=== PATIENT | male | born 1955 | race Caucasian/White ===

== ENCOUNTER 2017-02-18 08:15 | Inpatient (IN) | payer OTHER ==
--- NOTE | 2017-02-08 10:11 | HP ---
HISTORY AND PHYSICAL: DATE OF SURGERY: 02/18/17 DATE OF OFFICE VISIT: 02/05/17 SURGEON: Michelle Huang MD * (DICTATED BY TITA BARNETT) PROCEDURE: Left total hip arthroplasty. CHIEF COMPLAINT: Left hip pain. HISTORY OF PRESENT ILLNESS: Mr. Perry is a 61-year-old gentleman with complaints of left hip pain secondary to advanced osteoarthritis. He has failed conservative management and has elected to proceed with a left total hip arthroplasty, which is scheduled for 02/18/[address] Huang. PAST MEDICAL HISTORY: High cholesterol and AFib. PAST SURGICAL HISTORY: Right knee arthroscopy x2, left knee arthroscopy x1, left carpal tunnel release. CURRENT MEDICATIONS: Lipitor 40 mg q.h.s. ALLERGIES: HYDROCODONE, which causes vomiting. FAMILY HISTORY: Denies. SOCIAL HISTORY: This is a 61-year-old gentleman. He lives with his . He does not smoke cigarettes, but does report smoking marijuana and occasional alcohol. REVIEW OF SYSTEMS: A complete 14-point review of systems was reviewed with the patient, was all negative or noncontributory. PHYSICAL EXAMINATION GENERAL: He is well developed, well nourished, in no acute distress. VITAL SIGNS: He stands 5 feet 8 inches tall, weighs 150 pounds. His blood pressure is 122/68. His heart rate was 68. HEENT: Normocephalic, atraumatic. NECK: Supple. No palpable lymph nodes. PULMONARY: The lungs are clear to auscultation bilaterally. CARDIO: Regular rate and rhythm. Strong S1, S2. ABDOMEN: Soft, nontender, nondistended. MUSCULOSKELETAL: Left lower extremity, the skin is intact. There are no open wounds or abrasions. He has decreased internal and external rotation of the left hip. He walks with an antalgic type gait. He is overall neurovascularly intact. ASSESSMENT/PLAN: Mr. Perry is a 61-year-old gentleman with complaints of left hip pain secondary to advanced osteoarthritis. He has failed conservative management and has elected to proceed with a left total hip arthroplasty which is scheduled on 02/18/[address] Huang discussed the risks and benefits of the surgery at today's visit and all of his questions were answered. Coumadin, Percocet, and Colace were sent to his pharmacy for postoperative pain control and DVT prophylaxis. He will see Dr. Huang back 2 weeks after the surgery. TITA BARNETT [id number]/[facility] #: [id number] MTDD
[~2017-02-18 08:15] MED LIST: Buffered Lidocaine 0.9% SYRIN* 5 ML/SYR SYRINGE INTRADERM ONE; Sodium Citrate/Citric Acid* 15 ML UDC PO ONE
[2017-02-18] MEDS ORDERED: Sodium Citrate/Citric Acid* 15 ML UDC ONE (08:24)
[2017-02-18] MEDS ORDERED: ceFAZolin 2 GM PREMIX (*) 50 ML IVPB ONE ×2 (08:24→09:12)
[2017-02-18] MEDS ORDERED: Buffered Lidocaine 0.9% SYRIN* 5 ML/SYR SYRINGE ONE (08:24)
[2017-02-18 09:24] LABS: Direct Bilirubin 0.2 mg/dL (0.03-0.18); Indirect Bilirubin 0.8 mg/dL (0.3-1.0)
[2017-02-18] MEDS ORDERED: Midazolam* 1 MG/ML 2 ML VIAL (2 MG) ONE (11:48)
[2017-02-18] MEDS ORDERED: Cisatracurium* 2 MG/ML MDV 5 ML ONE (11:48)
[2017-02-18] MEDS ORDERED: Propofol* 10 MG/ML 20 ML BTL IV PUSH ONE (11:48)
[2017-02-18] MEDS ORDERED: Lidocaine 2% PF * 5 ML VIAL ONE (11:48)
[2017-02-18] MEDS ORDERED: fentaNYL* 50 MCG/ML 2 ML VIAL (100 MCG VIAL) ONE ×2 (11:48→14:57)
[2017-02-18] MEDS ORDERED: KETAMINE HCL* 50 MG/ML 10 ML VIAL ONE (12:15)
[2017-02-18] MEDS ORDERED: Ondansetron INJ* 2 MG/ML VIAL ONE (14:02)
[2017-02-18] MEDS ORDERED: Neostigmine Methylsulfate* 2 MG/2 ML SYRINGE ONE (14:02)
[2017-02-18] MEDS ORDERED: Glycopyrrolate IV* 0.2 MG/ML 1 ML VIAL ONE ×2 (14:02→14:36)
[2017-02-18] MEDS ORDERED: Ketorolac INJ* 30 MG/ML 1 ML VIAL ONE (14:02)
[2017-02-18] MEDS ORDERED: DiMENhydriNATE IV* 50 MG/ML VIAL IV PUSH PRN (14:30)
[2017-02-18] MEDS ORDERED: Polyethylene Glycol 3350* 17 GM PACKET PO PRN (14:50)
[2017-02-18] MEDS ORDERED: diPHENhydraMINE IV* 50 MG/ML 1 ml VIAL (BENADRYL) IV PRN (14:50)
[2017-02-18] MEDS ORDERED: Acetaminophen TAB* 325 MG PO PRN (14:50)
[2017-02-18] MEDS ORDERED: Magnesium Hydroxide LIQ* 30 ML UDC PO PRN (14:50)
[2017-02-18] MEDS ORDERED: Ondansetron TAB* 4 MG PO PRN (14:50)
[2017-02-18] MEDS ORDERED: oxyCODONE TAB* 5 MG TAB PO PRN (14:50)
[2017-02-18] MEDS ORDERED: Morphine INJ* 2 MG/ML 1 ML SYRINGE (TWO MG - NEW SYRINGE VERSION) IV PRN (14:50)
[2017-02-18] MEDS ORDERED: Bisacodyl SUPP* 10 MG SUPP PR PRN (14:50)
[2017-02-18] MEDS: fentaNYL* 50 MCG/ML 2 ML VIAL (100 MCG VIAL) IV PRN ×2 (14:59→15:33)
[2017-02-18] MEDS ORDERED: DiMENhydriNATE IV* 50 MG/ML VIAL ONE (15:57)
[2017-02-18] MEDS: oxyCODONE/Acetamin 5/325 MG* TAB PO PRN ×3 (17:42→23:53)
[2017-02-18] MEDS ORDERED: Warfarin TAB(*) 6 MG PO ONE (18:00)
[2017-02-18] MEDS: Atorvastatin* 40 MG TAB PO SCH (18:05)
[2017-02-18] MEDS: Docusate CAP* 100 MG PO SCH (20:51)
[2017-02-18] MEDS: ceFAZolin 1 GM VIAL(*) 1 GM in NS 0.9% 50 ML* 50 ML IVPB SCH (20:53)
[2017-02-19] MEDS: oxyCODONE/Acetamin 5/325 MG* TAB PO PRN ×5 (04:27→21:40)
[2017-02-19] MEDS: ceFAZolin 1 GM VIAL(*) 1 GM in NS 0.9% 50 ML* 50 ML IVPB SCH ×2 (04:27→12:35)
[2017-02-19 06:51] LABS: Hematocrit 29 % (42-52); Hemoglobin 9.9 g/dl (14.0-18.0)
[2017-02-19 06:53] LABS: Comments Flag Yes
[2017-02-19 07:04] LABS: BUN/Creatinine Ratio 16.5 (8-20); Calcium 7.9 mg/dL (8.6-10.3); EGFR African American 127.4 (>60); EGFR Non-African American 99.1 (>60); Potassium 4.2 mmol/L (3.5-5.0)
[2017-02-19] MEDS: Docusate CAP* 100 MG PO SCH ×2 (07:57→21:38)
--- NOTE | 2017-02-19 10:10 | PN ---
Progress Note - Progress Note Date of Service: 02/19/17 SOAP: Subjective: []Patient seen OOB in chair. He is doing very well with minimal pain. Denies SOB, CP or dizziness. Objective: [] Vital Signs Temp 98.1 F 02/19/17 07:14 Pulse 70 02/19/17 07:14 Resp 16 02/19/17 07:56 BP 116/54 02/19/17 07:14 Pulse Ox 97 02/19/17 07:14 Intake & Output 02/18/17 02/19/17 02/19/17 18:59 06:59 18:59 Intake Total 3600 2789 Output Total 100 625 Balance 3500 2164 Weight 156 lb Intake: IV Fluids 3600 989 LR 3600 989 IVPB 50 ABX - CEFAZOLIN 50 Oral 1750 Output: Urine 0 Broderick 100 625 Laboratory Results - last 24 hr 02/19/17 02/19/17 02/19/17 06:30 06:30 06:30 Hgb 9.9 L Hct 29 L INR (Anticoag Therapy) 1.03 Sodium 133 Potassium 4.2 Chloride 101 Carbon Dioxide 28 Anion Gap 4 BUN 13 Creatinine 0.79 Est GFR ( Amer) 127.4 Est GFR (Non-Af Amer) 99.1 BUN/Creatinine Ratio 16.5 Glucose 120 H Calcium 7.9 L Left hip dressings dry and intact calf NT +DF/PF left ankle sensation and circulation intact Assessment: []s/p Left total hip arthroplasty POD #1 Plan: []PT/OT WBAT LLE Coumadin w Lovenox bridge- 8mg today Home w VNS when all goals met
[2017-02-19] MEDS: Enoxaparin(*) 30 MG/0.3 ML SYR SUBCUT SCH (12:35)
--- NOTE | 2017-02-19 12:37 | OP ---
OPERATIVE REPORT: DATE OF OPERATION: 02/18/17 DATE OF : 51 SURGEON: Michelle Huang MD REAL ESTATE ANALYST: TITA Faulkner Ms. did help throughout the procedure with preparation of the leg, wound retraction, manipulation of the hip, and wound closure. ANESTHESIOLOGIST: Ronny Weiss DO ANESTHESIA: General. PRE-OP DIAGNOSIS: Severe end-stage degenerative osteoarthritis of the left hip joint. POST-OP DIAGNOSIS: Severe end-stage degenerative osteoarthritis of the left hip joint. OPERATIVE PROCEDURE: Left total hip arthroplasty. INDICATIONS: Mr. Perry is a 61-year-old gentleman with years of increasingly severe left hip pain. He failed conservative treatment with antiinflammatories , pain medications, intraarticular injections, and physical therapy. Due to continued pain, and decreased quality of life, he elected to undergo a left total hip arthroplasty. Informed consent was obtained from the patient. He understood the risks of the procedure included but were not limited to bleeding , infection, damage to nearby structures, continued pain, need for further surgery, intraoperative fracture, nerve palsy, hardware failure, dislocation, leg length discrepancy, stroke, heart attack, blood clot, and . He wished to proceed. EBL: 500 cc. COMPLICATIONS: None. SPECIMEN: Femoral head and acetabular reaming sent to Pathology. HARDWARE USED: This is uncemented [place] total hip hardware. For the cup, a 54E Tritanium cluster hole shell. A 25-mm cancellous bone screw was used. For the polyethylene liner, a Trident X3 0-degree polyethylene insert 36E. For the femoral stem, a size 3.5 Accolade TMZF with a 127-degree neck. For the head, a Biolox delta ceramic V40 femoral head, 36 -5. INTRAOPERATIVE FINDINGS: The patient's femoral head and acetabulum had complete loss of cartilage. He had extensive osteophyte formation around the acetabulum. DESCRIPTION OF PROCEDURE: Mr. Perry was identified in the preanesthesia unit. His left lower extremity was marked as the correct operative side. Informed consent was signed and placed in the chart. The patient was taken to the operating room and placed under general anesthesia. A Broderick catheter was placed. The patient was placed in the right lateral decubitus position on the peg board and all bony prominences were well padded. Left lower extremity was prepped and draped in the usual sterile fashion. Preop time-out was made to correctly identify the patient's side and site. Appropriate perioperative antibiotics were given within 1 hour of incision. A 14-cm posterior hip incision was made with a 10-blade and carried down to the lateral fascial layer. Lateral fascial layer was incised in line with the skin incision. Charnley retractor was placed and the posterior aspect of the hip joint was visualized. Piriformis and conjoint tendons were identified and elevated off the posterolateral femur using electrocautery. These were tagged with #5 Ethibond's. Electrocautery was then used to make a standard posterolateral capsular flap. This was also tagged with #5 Ethibond's. The hip was carefully dislocated. Lesser troch to center of the femoral head measured 55 mm. Oscillating saw was used to make the appropriate femoral neck cut. Femoral head was sent to Pathology. The femur was carefully retracted anteriorly. A long-handled knife was used to carefully remove any remaining labrum from the acetabular rim. The acetabulum was sequentially reamed up to a size 53. Bleeding subchondral bone bed was obtained. A 53 trial had excellent fit. Final implant chosen for the acetabulum was a 54E Tritanium cluster hole shell. This was impacted into the acetabulum without difficulty. The cup was stable with appropriate anteversion and abduction angle. One 25-mm cancellous bone screw was placed in the superoposterior quadrant for extra stability. A Trident X3 0-degree polyethylene insert 36E was chosen as the liner. This was impacted into the acetabulum without difficulty. Stability of the liner was checked and rechecked and noted to be stable. Attention was next turned to preparation of the femur. Canal finder was used to enter the proximal femur. Proximal femur was sequentially broached up to a size 3.5. A 3.5 broach had excellent fit and appropriate anteversion. A 127- degree neck trial was chosen as well as a 36 +0 head trial. Lesser troch to center of the femoral head measured 60 mm; therefore, a 36 -5 trial was chosen and this measured 56 mm. The hip was reduced and taken through a range of motion. The hip was stable in all positions with good soft tissue tension and appropriate leg lengths. The hip was carefully dislocated. All trials were carefully removed. Final femoral stem chosen was an Accolade TMZF size 3.5 with a 127-degree neck. This was impacted into the femur without difficulty. The femoral stem was quite stable with appropriate anteversion. Biolox delta ceramic V40 femoral head 36 - 5 was chosen. This was impacted on to the femoral neck. Lesser troch to center of the femoral head measured 56 mm. The hip was reduced and taken through a range of motion. The hip was stable in all positions. The hip was copiously irrigated with sterile saline. Previously tagged tendons and capsule were reapproximated to the posterolateral femur using 2 trochanteric drill holes. Fascial layer was closed using interrupted #1 Vicryl' s. The rest of the incision was closed in a layered fashion using 0 and 2-0 Vicryl's. Skin was closed using running 3-0 Monocryl with Dermabond. Sterile Adaptic, 4x4's, and paper tape were used to cover the incision. The patient's anesthesia was reversed without difficulty. He was taken to the PACU in stable condition. Intended weightbearing is weightbearing as tolerated. Intended DVT prophylaxis is Coumadin with a Lovenox bridge. [id number]/[facility] #: [id number] [facility]
[2017-02-19] MEDS: Atorvastatin* 40 MG TAB PO SCH (16:57)
[2017-02-19] MEDS ORDERED: Warfarin TAB(*) 4 MG PO ONE (17:00)
[2017-02-19] MEDS ORDERED: PROCHLORPERAZINE INJ 5 MG/ML 2 ML VIAL IV PRN (17:35)
[2017-02-19] MEDS ORDERED: PROCHLORPERAZINE INJ 5 MG/ML 2 ML VIAL ONE (17:40)
[2017-02-20] MEDS: oxyCODONE/Acetamin 5/325 MG* TAB PO PRN ×3 (04:05→10:34)
[2017-02-20 06:43] LABS: Hematocrit 27 % (42-52); Hemoglobin 9.5 g/dl (14.0-18.0)
--- NOTE | 2017-02-20 07:28 | PN ---
Progress Note - Progress Note Date of Service: 02/20/17 SOAP: Subjective: Pt. is alert, reports n/v is improved. Objective: LLE - dressing changed, inc c/d/i. min swelling. distally nvi. Vital Signs: Temp Pulse Resp BP Pulse Ox 98.8 F 82 16 104/49 95 02/20/17 04:13 02/20/17 04:12 02/20/17 06:05 02/20/17 04:12 02/20/17 04:12 Laboratory Results - last 24 hr 02/20/17 02/20/17 06:13 06:13 Hgb 9.5 L Hct 27 L INR (Anticoag Therapy) 1.24 H Assessment: 61 yo M pod 2 s/p LTHA Plan: wbat lle pt/ot lovenox today home with vns today
[2017-02-20 07:37] VITALS: BP 100/54
[2017-02-20] MEDS: Docusate CAP* 100 MG PO SCH (10:28)
[2017-02-20] MEDS: Enoxaparin(*) 30 MG/0.3 ML SYR SUBCUT SCH (11:56)
--- NOTE | 2017-02-21 04:46 | DS ---
AMENDED REPORT NOW INCLUDES COSIGNER DESIGNATION - ESIGNED BEFORE ADJUSTMENT DISCHARGE SUMMARY: DATE OF ADMISSION: 02/18/17 DATE OF DISCHARGE: 02/20/17 ATTENDING PHYSICIAN: Michelle Huang MD * (DICTATED BY TITA SOTO) PRINCIPAL DIAGNOSIS: Left hip osteoarthritis. SECONDARY DIAGNOSES: 1. Hyperlipidemia. 2. Atrial fibrillation. PRINCIPAL PROCEDURE: Left total hip arthroplasty. REASON FOR HOSPITALIZATION: Mr. Perry is a 61-year-old male with complaints of left hip pain secondary to advanced osteoarthritis. He had failed conservative management and had elected to proceed with left total hip arthroplasty, which was scheduled on 02/18/[address] Huang. HOSPITAL COURSE: The patient was admitted to the hospital and underwent a left total hip arthroplasty on 02/18/[address] Huang, without complication. The patient was transferred postoperatively to the recovery room and subsequently the surgical stay unit in a stable condition. His vital signs have remained stable throughout the hospital course, including remaining afebrile. His dressing was changed on the day of discharge. His incision was clean, dry, and intact. He is using Percocet for pain control. He has been on Coumadin for DVT prophylaxis. INR was drawn throughout the hospital course. He has participated in physical therapy and occupational therapy throughout the hospital course and has done well. His hemoglobin and hematocrit have been checked throughout the hospital course and on the day of discharge hemoglobin was 9.5, hematocrit was 27 and stable, and he will be discharged home on in a stable condition. DISCHARGE INSTRUCTIONS: Weightbearing as tolerated. Wound care: Okay to shower, no bathing, swimming, submerging wound. Use gentle soap, pat dry, cover with gauze, Ravindra wrap or tape. Call orthopedic office for increased drainage, redness, increased pain or fever. Go to the ER with shortness of breath or chest pain. Diet, regular diet, increase fluids and fiber to prevent constipation. Continue to use stool softeners, call office if no bowel movements within 48 hours. Continue hip precautions, do not cross legs or bend greater than 90 degrees or squat. Continue physical therapy and occupational therapy, exercises as shown. Visiting home nurse to do wound checks. Visiting home nurse to draw blood work for INR on Mondays and . Coumadin dosing , take Coumadin 6 mg today and 6 mg tomorrow, on 02/21/17. Home nurse to redraw INR on Wednesday. Antibiotics required prior to any dental work. Follow up with Dr. Huang within 10 to 14 days, call for appointment. TITA SOTO [id number]/[facility] #: [id number] TAL
--- NOTE | 2017-02-22 09:54 | RAD ---
Edited for charges. Indication: Postop LEFT total hip replacement. Comparison: December 16, 2016 Technique: Low AP pelvis and proximal femurs, AP and crosstable lateral LEFT hip Report: LEFT total hip prosthesis in place with normal alignment. No periprosthetic fracture evident. Overlying soft tissue edema and subcutaneous emphysema. IMPRESSION: Unremarkable immediate postop appearance following LEFT total hip replacement. TAL
== END 2017-02-20 12:20 | disposition home health service (06) | DRG 470 ==
LOC: AA 08:15 → SSU 17:01
PROVIDERS: ADMIT Orthopaedic Surgery Adult Reconstructive Orthopaedic Surgery; ATTEND Orthopaedic Surgery Adult Reconstructive Orthopaedic Surgery
PROC: 0SRB04A Replacement of Left Hip Joint with Ceramic on Polyethylene Synthetic Substitute, Uncemented, Open Approach (ICD-10-PCS; principal; 2017-02-18 12:00)
DX: M16.12 Unilateral primary osteoarthritis, left hip (principal); I48.91 Unspecified atrial fibrillation; E78.5 Hyperlipidemia, unspecified; F12.90 Cannabis use, unspecified, uncomplicated; M25.752 Osteophyte, left hip; Z88.5 Allergy status to narcotic agent; Z72.89 Other problems related to lifestyle
CPT/HCPCS: 36415; 72170; 80048; 82247; 82248; 85014; 85018; 85610; 85730; A9270-GY; C1713; C1776; J0690; J0780; J1240; J1650; J1885; J2250; J2405; J2704; J3010

== ENCOUNTER 2017-03-01 13:39 | Observation (INO) | payer OTHER ==
[2017-03-01] MEDS ORDERED: NS 0.9% 1000 ML* 1,000 ML IV ONE (14:37)
[2017-03-01 14:47] LABS: Hematocrit 32 % (42-52); Hemoglobin 10.7 g/dl (14.0-18.0); Mean Corpuscular HGB Conc 34 g/dl (31-36); Mean Corpuscular Hemoglobin 31 pg (27-31); Mean Corpuscular Volume 91 fL (80-94); Mean Platelet Volume 7 um3 (7.4-10.4); Red Blood Count 3.48 10^6/ul (4.0-5.4); Red Cell Distribution Width 13 % (10.5-15); White Blood Count 13.9 10^3/ul (3.5-10.8)
[2017-03-01 15:04] LABS: Albumin 3.8 g/dL (3.2-5.2); BUN/Creatinine Ratio 18.1 (8-20); C Reactive Protein 10.92 mg/L (< 5.00); EGFR African American 120.3 (>60); EGFR Non-African American 93.6 (>60); Globulin 3.1 g/dL (2-4); Magnesium 2.3 mg/dL (1.9-2.7); Potassium 3.8 mmol/L (3.5-5.0); Total Bilirubin 0.5 mg/dL (0.2-1.0); Total Protein 6.9 g/dL (6.4-8.9)
[2017-03-01] MEDS ORDERED: Iohexol 350* (CONTRAST) 500 ML MDV IV ONE (15:08)
[2017-03-01 15:14] LABS: Troponin I 0.09 ng/mL (<0.04)
[2017-03-01 15:40] LABS: TSH (Thyroid Stimulating Horm) 0.49 mcIU/mL (0.34-5.60)
--- NOTE | 2017-03-01 15:45 | RAD ---
INDICATION: Pain and swelling. Chest pain. Recent hip surgery. COMPARISON: None TECHNIQUE: Duplex interrogation of the left lower extremity was performed. FINDINGS: Deep veins: The common femoral, great saphenous, profunda femoris, proximal, mid, and distal deep femoral, popliteal, posterior tibial, and peroneal veins are patent. There is normal compressibility, augmentation, and phasic flow. Superficial veins: There are no findings of superficial thrombophlebitis. Popliteal fossa:There is no evidence of a popliteal cyst. Soft tissues:There are no soft tissue abnormalities. IMPRESSION: Normal examination. No evidence of deep venous thrombosis
[2017-03-01] MEDS ORDERED: Iodixanol* (CONTRAST) 320 MG/ML 100 ML SDV IV ONE (15:55)
[2017-03-01] MEDS ORDERED: Aspirin Low Dose CHEW TAB* 81 MG PO ONE (16:08)
--- NOTE | 2017-03-01 16:40 | RAD ---
INDICATION: Chest pain. Short of breath. Evaluate for pulmonary embolus. COMPARISON: Chest x-ray February 05, 2017 TECHNIQUE: Axial source images were obtained from the thoracic inlet to the hemidiaphragms following administration of [address] angiographic technique was utilized. Coronal and sagittal reconstructed images were acquired. CHEST FINDINGS: Neck/thyroid: The visualized neck to include the thyroid appear normal. Chest wall: There are no acute abnormalities of the bony thorax or chest wall. There is no supraclavicular, infraclavicular, or axillary lymphadenopathy. Lungs : There are no pulmonary parenchymal masses or infiltrates. The pulmonary interstitium appears normal. There are no endobronchial lesions. Cardiomediastinal structures: There is no CT evidence of acute pulmonary embolic disease. The heart is normal in size. There is no pericardial effusion. There is no evidence of aortic aneurysm or dissection. There is no mediastinal or hilar adenopathy. The esophagus appears normal. Pleura : There are no pleural-based masses or effusions. Other: None. IMPRESSION: NO CT EVIDENCE OF ACUTE PULMONARY EMBOLIC DISEASE
[2017-03-01] MEDS ORDERED: oxyCODONE/Acetamin 5/325 MG* TAB PO PRN (18:21)
[2017-03-01] MEDS ORDERED: Acetaminophen TAB* 325 MG PO PRN (18:21)
[2017-03-01] MEDS ORDERED: Morphine INJ* 2 MG/ML 1 ML SYRINGE (TWO MG - NEW SYRINGE VERSION) IV PRN (18:21)
--- NOTE | 2017-03-01 18:34 | ED ---
Viet Garibay Benjamin, scribed for Terry Gaines MD on 03/01/17 at 1433 . HPI Chest Pain - HPI Summary HPI Summary: 61yo male c/o bilateral chest pain that radiates to right shoulder and right arm , and neck. CP occurs intermittently, lasting about 10 minutes. Pt had an episode last night around 9pm and today at 12:30pm. Pt is s/p 2 weeks for hip replacement. Pt has been on post-op Coumadin. Denies nausea, SOB, but states slightly diaphoretic earlier today. Hx of HLD, but not DM, and no siginificant cardiac Hx. - History of Current Complaint Chief Complaint: EDChestPainROMI Hx Obtained From: Patient, Family/[employer] System Administrator Onset/Duration: Started Days Ago - 1 day ago, Atraumatic, Resolved Timing: Intermittent, Lasting Minutes - 10 minutes Initial Severity: Moderate Current Severity: None Pain Intensity: 1 Pain Scale Used: 0-10 Numeric Chest Pain Location: Diffuse Chest Pain Radiates: Yes Chest Pain Radiates To:: Shoulder - right, Arm - right, Neck Aggravating Factor(s): Nothing Alleviating Factor(s): Nothing Associated Signs and Symptoms: Positive: Chest Pain, Diaphoresis. Negative: Shortness of Breath, Fever, Nausea - Allergy/Home Medications Allergies/Adverse Reactions: Allergies Allergy/AdvReac Type Severity Reaction Status Date / Time Hydrocodone Allergy Vomiting Verified 02/18/17 08:45 PMH/Surg Hx/FS Hx/Imm Hx Endocrine/Hematology History: Denies: Hx Diabetes Cardiovascular History: Reports: Hx Hypercholesterolemia, Other Cardiovascular Problems/Disorders - high cholesterol Denies: Hx Myocardial Infarction Sensory History: Reports: Hx Contacts or Glasses Denies: Hx Hearing Aid Opthamlomology History: Reports: Hx Contacts or Glasses - Cancer History Hx Chemotherapy: No - Surgical History Surgery Procedure, Year, and Place: carpel tunnel left wrist, 2x right knee arthroscopic, 1 left arthroscopic. Hx Anesthesia Reactions: No Infectious Disease History: No Infectious Disease History: Denies: Traveled Outside the [place] in Last 30 Days - Family History Known Family History: Positive: Hypertension, Other - HLD - Social History Lives: With Family Alcohol Use: Daily Alcohol Amount: 3-4 day Substance Use Type: Reports: Marijuana Substance Use Comment - Amount & Last Used: 1-2 weeks ago Smoking Status (MU): Never Smoked Tobacco Review of Systems Positive: Skin Diaphoresis. Negative: Fever Eyes: Negative ENT: Negative Positive: Epistaxis Positive: Chest Pain Respiratory: Negative Gastrointestinal: Negative Negative: Nausea Genitourinary: Negative Positive: no symptoms reported Musculoskeletal: Negative Skin: Negative Neurological: Negative Psychological: Normal All Other Systems Reviewed And Are Negative: Yes Physical Exam Triage Information Reviewed: Yes Vital Signs On Initial Exam: Initial Vitals Temp Pulse Resp BP Pulse Ox 99.7 F 78 17 147/84 100 03/01/17 13:41 03/01/17 13:41 03/01/17 13:41 03/01/17 13:41 03/01/17 13:41 Vital Signs Reviewed: Yes Appearance: Positive: Well-Appearing, No Pain Distress, Well-Nourished Skin: Positive: Warm, Skin Color Reflects Adequate Perfusion, Dry Head/Face: Positive: Normal Head/Face Inspection Eyes: Positive: Normal ENT: Positive: Normal ENT inspection, Hearing grossly normal Neck: Positive: Supple, Nontender Respiratory/Lung Sounds: Positive: Clear to Auscultation, Breath Sounds Present Cardiovascular: Positive: RRR, Pulses are Symmetrical in both Upper and Lower Extremities Abdomen Description: Positive: Nontender, Soft Bowel Sounds: Positive: Present Musculoskeletal: Positive: Normal, Strength/ROM Intact Neurological: Positive: Sensory/Motor Intact, Alert, Oriented to Person Place, Time Psychiatric: Positive: Affect/Mood Appropriate Diagnostics - Vital Signs Vital Signs Temp Pulse Resp BP Pulse Ox 03/01/17 13:41 99.7 F 78 17 147/84 100 - Laboratory Lab Results: Lab Results 03/01/17 03/01/17 03/01/17 Range/Units 14:35 14:35 14:35 WBC (3.5-10.8) 10^3/ul RBC (4.0-5.4) 10^6/ul Hgb (14.0-18.0) g/dl Hct (42-52) % MCV (80-94) fL MCH (27-31) pg MCHC (31-36) g/dl RDW (10.5-15) % Plt Count (150-450) 10^3/ul MPV (7.4-10.4) um3 Neut % (Auto) (38-83) % Lymph % (Auto) (25-47) % [place] % (Auto) (1-9) % Eos % (Auto) (0-6) % Baso % (Auto) (0-2) % Absolute Neuts (auto) (1.5-7.7) 10^3/ul Absolute Lymphs (auto) (1.0-4.8) 10^3/ul Absolute Monos (auto) (0-0.8) 10^3/ul Absolute Eos (auto) (0-0.6) 10^3/ul Absolute Basos (auto) (0-0.2) 10^3/ul Absolute Nucleated RBC 10^3/ul Nucleated RBC % INR (Anticoag Therapy) 1.59 H (0.89-1.11) APTT 35.2 (26.0-36.3) seconds Sodium 138 (133-145) mmol/L Potassium 3.8 (3.5-5.0) mmol/L Chloride 104 (101-111) mmol/L Carbon Dioxide 29 (22-32) mmol/L Anion Gap 5 (2-11) mmol/L BUN 15 (6-24) mg/dL Creatinine 0.83 (0.67-1.17) mg/dL Est GFR ( Amer) 120.3 (>60) Est GFR (Non-Af Amer) 93.6 (>60) BUN/Creatinine Ratio 18.1 (8-20) Glucose 105 H (70-100) mg/dL Lactic Acid (0.5-2.0) mmol/L Calcium 9.0 (8.6-10.3) mg/dL Magnesium 2.3 (1.9-2.7) mg/dL Total Bilirubin 0.50 (0.2-1.0) mg/dL AST 28 (13-39) U/L ALT 47 (7-52) U/L Alkaline Phosphatase 49 (34-104) U/L Total Creatine Kinase 53 (10-223) U/L CK-MB (CK-2) 1.9 (0.6-6.3) ng/mL Troponin I 0.09 H* (<0.04) ng/mL C-Reactive Protein 10.92 H (< 5.00) mg/L B-Natriuretic Peptide 43 ( - 100) pg/mL Total Protein 6.9 (6.4-8.9) g/dL Albumin 3.8 (3.2-5.2) g/dL Globulin 3.1 (2-4) g/dL Albumin/Globulin Ratio 1.2 (1-3) Lipase 41 (11.0-82.0) U/L TSH 0.49 (0.34-5.60) mcIU/mL 03/01/17 03/01/17 Range/Units 14:35 14:35 WBC 13.9 H (3.5-10.8) 10^3/ul RBC 3.48 L (4.0-5.4) 10^6/ul Hgb 10.7 L (14.0-18.0) g/dl Hct 32 L (42-52) % MCV 91 (80-94) fL MCH 31 (27-31) pg MCHC 34 (31-36) g/dl RDW 13 (10.5-15) % Plt Count 418 (150-450) 10^3/ul MPV 7 L (7.4-10.4) um3 Neut % (Auto) 78.5 (38-83) % Lymph % (Auto) 10.1 L (25-47) % [place] % (Auto) 10.3 H (1-9) % Eos % (Auto) 0.7 (0-6) % Baso % (Auto) 0.4 (0-2) % Absolute Neuts (auto) 10.9 H (1.5-7.7) 10^3/ul Absolute Lymphs (auto) 1.4 (1.0-4.8) 10^3/ul Absolute Monos (auto) 1.4 H (0-0.8) 10^3/ul Absolute Eos (auto) 0.1 (0-0.6) 10^3/ul Absolute Basos (auto) 0.1 (0-0.2) 10^3/ul Absolute Nucleated RBC 0.01 10^3/ul Nucleated RBC % 0.1 INR (Anticoag Therapy) (0.89-1.11) APTT (26.0-36.3) seconds Sodium (133-145) mmol/L Potassium (3.5-5.0) mmol/L Chloride (101-111) mmol/L Carbon Dioxide (22-32) mmol/L Anion Gap (2-11) mmol/L BUN (6-24) mg/dL Creatinine (0.67-1.17) mg/dL Est GFR ( Amer) (>60) Est GFR (Non-Af Amer) (>60) BUN/Creatinine Ratio (8-20) Glucose (70-100) mg/dL Lactic Acid 1.1 (0.5-2.0) mmol/L Calcium (8.6-10.3) mg/dL Magnesium (1.9-2.7) mg/dL Total Bilirubin (0.2-1.0) mg/dL AST (13-39) U/L ALT (7-52) U/L Alkaline Phosphatase (34-104) U/L Total Creatine Kinase (10-223) U/L CK-MB (CK-2) (0.6-6.3) ng/mL Troponin I (<0.04) ng/mL C-Reactive Protein (< 5.00) mg/L B-Natriuretic Peptide ( - 100) pg/mL Total Protein (6.4-8.9) g/dL Albumin (3.2-5.2) g/dL Globulin (2-4) g/dL Albumin/Globulin Ratio (1-3) Lipase (11.0-82.0) U/L TSH (0.34-5.60) mcIU/mL Result Diagrams: 03/01/17 14:35 03/01/17 14:35 Lab Statement: Any lab studies that have been ordered have been reviewed, and results considered in the medical decision making process. - CT CTA CHEST CT Interpretation: No Acute Changes - IMPRESSION: NO CT EVIDENCE OF ACUTE PULMONARY EMBOLIC DISEASE CT Interpretation Completed By: Radiologist - ED physician has reviewed this radiology report and agrees. - EKG 1404. Cardiac Rate: NL - 67bpm EKG Rhythm: Sinus Rhythm Ectopy: None EKG Interpretation: T wave depression in V4 and V5 - Additional Comments Diagnostic Additional Comments: Doppler Study: NO DVT. ED physician has reviewed this radiology report and agrees. Chest Pain Course/Dx - Course Course Of Treatment: Reviewed pts medication and allergy lists. High Blood pressure noted. DISCUSSED WITH DR CHACKO. DISCUSSED RESULTS WITH PATIENT/WFE. ADMIT HOSPITALIST. - Diagnoses Provider Diagnoses: Chest pain, Elevated troponin Discharge - Discharge Plan Condition: Stable Disposition: ADMITTED TO [facility] documentation as recorded by the Viet henderson Benjamin accurately reflects the service I personally performed and the decisions made by me, Terry Gaines MD.
[2017-03-01] MEDS ORDERED: Heparin DRIP 25,000 UNITS(*) 25,000 UNITS/500 ML BAG IVPB SCH (19:30)
[2017-03-01] MEDS ORDERED: Heparin VIAL(*) 5000 UNITS/ML VIAL (FIVE THOUSAND) IV SCH (20:00)
[2017-03-01] MEDS: Metoprolol Tartrate TAB* 25 MG PO SCH (20:29)
[2017-03-01] MEDS ORDERED: Temazepam CAP* 15 MG PO PRN (21:00)
[2017-03-01] MEDS ORDERED: Aspirin TAB* 325 MG PO SCH (21:00)
[2017-03-01] MEDS ORDERED: Atorvastatin* 10 MG TAB PO ONE (21:00)
[2017-03-01] MEDS ORDERED: Heparin VIAL(*) 5000 UNITS/ML VIAL (FIVE THOUSAND) SUBCUT SCH (22:00)
[2017-03-01] MEDS: Atorvastatin* 40 MG TAB PO SCH (22:51)
--- NOTE | 2017-03-01 23:37 | HP ---
CC: Dr. Morgan; Dr. Deluca* HISTORY AND PHYSICAL: DATE OF ADMISSION: 03/01/17 PRIMARY CARE PHYSICIAN: Dr. Deluca. CHIEF COMPLAINT: Chest pain. HISTORY OF PRESENT ILLNESS: Brandon Perry is a 61-year-old male with history of recent left total hip arthroplasty on 02/18/[address] Huang, who also has history of dyslipidemia and knee arthroscopies and presents to the [facility] complaining of chest pain. The patient stated that first time the chest pain developed for about 10 minutes at about 8 p.m. on 02/28/17. It lasted 10 minutes and was localized in the bilateral upper chest radiating to the left arm. It was associated with some shortness of breath, but no diaphoresis. The patient did not notice any alleviating or aggravating factors and the pain went away spontaneously. The pain recurred on 03/01/17 at around noon and lasted 45 minutes. Once again at that point, the patient was read the stationery and eating lunch. He stated that he walked to the car and the pain did not worsen. The pain resolved spontaneously 45 minutes later. Once again, there were no alleviating or aggravating factors, but the pain was more localized in the right upper chest radiating to the right arm. There was also some dyspnea associated with the pain, but no nausea. The patient went to see Dr. Deluca in his office at around 1:[address] Deluca directed the patient after he was seen in the office to the ED for evaluation. Here his EKG was read as unremarkable, but his troponin was 0.09. The patient continued to be chest pain free throughout his ER stay and he was directed for admission. PAST MEDICAL HISTORY: 1. History of dyslipidemia. 2. History of one episode of atrial fibrillation after the patient drunk too much wine approximately 10 years ago. He was cardioverted and that never recurred. 3. History of bilateral knee arthroscopies. 4. History of left carpal tunnel release. 5. History of left hip total arthroplasty performed on 02/18/[address] Huang. CURRENT MEDICATIONS: Include: 1. Aspirin 325 mg twice a day as per Dr. Huang. 2. Coumadin that was just stopped yesterday by Dr. Huang. 3. Lipitor 40 mg daily. ALLERGIES: HYDROCODONE causes vomiting. FAMILY HISTORY: Positive for father with heart disease, who of sudden cardiac at the age of 62. The patient's mother with history of CVA, at the age of 85. The patient's mother also had history of cardiac arrhythmia. SOCIAL HISTORY: The patient has history of drinking aggressive wine on a daily basis. He denies any tobacco use. He smokes occasionally marijuana. He lives with his who would be his surrogate. REVIEW OF SYSTEMS: Please see history of present illness. The patient stated that he cannot exercise strenuously due to his arthroscopic surgeries and his joints being in poor shape. Nevertheless, he is rather very active and he is able to walk without any problems and postoperatively, he is now walking without any problems and climbing stairs without any problems. He has not had any problems with exercise intolerance in the past several weeks. The remaining 12 systems were reviewed with the patient and were otherwise negative. PHYSICAL EXAMINATION GENERAL: The patient is a pleasant 61-year-old male, who is in no acute distress. Alert, awake, and oriented x3. VITAL SIGNS: Blood pressure of 124/60, heart rate of 70 and regular, respiratory rate 15, oxygen saturation 98% on room air, temperature 98.6. HEENT: Head: Atraumatic, normocephalic. Eyes: Pupils are equal, reactive to light and accommodation. Oropharynx clear. Mucosa moist. NECK: Supple. No JVD. No bruits bilaterally. RESPIRATORY: Clear to auscultation bilaterally. CARDIOVASCULAR: Regular rate and rhythm with no murmur. ABDOMEN: Soft and nontender. Bowel sounds present in all 4 quadrants. EXTREMITIES: There is no edema. Pulses +2 bilaterally. No clubbing or cyanosis. NEURO EVALUATION: Speech clear. Cranial nerves II through XII grossly intact. Motor strength is 5/5 bilaterally. SKIN: On evaluation of the skin, no ecchymotic areas or rashes noted. PSYCHIATRIC EVALUATION: Pleasant, cooperative with evaluation, oriented x3 with no evidence of anxiety or depression. DIAGNOSTIC STUDIES/LAB DATA: Showed INR of 1.59. White blood cell count of 13.9, hemoglobin 10.7, hematocrit 32, and platelets of 418. Sodium is 138, potassium 3.8, chloride 104, carbon dioxide 29, BUN 15, creatinine 0.83. Liver function tests were unremarkable. C-reactive protein of 10, troponin of 0.09. Repeat troponin was 0.8. TSH of 0.49. Lipase of 41. The patient's venous Doppler study was negative for DVT bilaterally. CT angiogram of the chest showed no evidence of acute pulmonary embolic disease. The patient's EKG showed normal sinus rhythm with a heart rate of 67 beats per minute with mild ST depressions in leads V4 and V6. This is comparable with an EKG from 2006. ASSESSMENT AND PLAN: 1. A 61-year-old male with history of recent surgery with negative embolic workup, who presents with elevated troponin, no EKG changes and chest pain. The patient is going to be admitted to the hospital with a diagnosis of chest pain. So far, he likely has unstable angina and he is going to be treated with anticoagulation with heparin. He is going to be continued on aspirin as well as Lipitor. Fasting lipid profile is going to be obtained in the morning and Dr. Morgan will see the patient in consultation in the morning. I will keep patient n.p.o. in the morning and obtain transthoracic echocardiogram. 2. For DVT prophylaxis, the patient is going to be placed on heparin subcutaneously. 3. The patient's code status is full. His surrogate is his . TIME SPENT: Approximately 65 minutes were spent on admission of this patient, more than half that time was spent [id number] with the patient during the interview and physical exam. [id number]/[facility] #: [id number] TAL
[2017-03-02 05:45] LABS: Hematocrit 31 % (42-52); Hemoglobin 10.5 g/dl (14.0-18.0); Mean Corpuscular HGB Conc 34 g/dl (31-36); Mean Corpuscular Hemoglobin 31 pg (27-31); Mean Corpuscular Volume 92 fL (80-94); Mean Platelet Volume 7 um3 (7.4-10.4); Red Blood Count 3.39 10^6/ul (4.0-5.4); Red Cell Distribution Width 13 % (10.5-15); White Blood Count 11.4 10^3/ul (3.5-10.8)
[2017-03-02 06:05] LABS: BUN/Creatinine Ratio 17.1 (8-20); Calcium 8.9 mg/dL (8.6-10.3); EGFR African American 133.2 (>60); EGFR Non-African American 103.6 (>60); HDL Cholesterol 34.8 mg/dL; Potassium 3.9 mmol/L (3.5-5.0)
[2017-03-02] MEDS: Metoprolol Tartrate TAB* 25 MG PO SCH ×2 (08:33→21:06)
[2017-03-02] MEDS ORDERED: Aspirin EC TAB* 325 MG PO SCH (09:00)
--- NOTE | 2017-03-02 12:22 | ECHO ---
Patient: SEDRICK ZARCO [facility] Rec#: [id number] : 1955 Date: 03/02/2017 Age: 61y Height: 172.72 cm / 68.0 in Weight: 70.31 kg / 155.0 lbs Sex: M BSA: 1.83 Room#: 444 Admit Date#: 03/01/2017 Type: Inpatient Referring: Latonia Arana MD Reading: Donnie Meadows MD Meteorological Engineer: Luma Patterson,RDCS,RDMS CC: Romie Deluca MD Transthoracic Echocardiogram Indication: CP BP: 106/57 HR: 64 Rhythm: NSR Findings History: HLD, AFIB Technical Comments: The study quality is good. Completed 1000 Left Ventricle: The left ventricular chamber size is normal. Mild concentric left ventricular hypertrophy is observed. There is a focal wall motion abnormality present.Global mild hypokinesis is noted with moderate to severe focal apical hypokinesis. There is mildly decreased left ventricular systolic function. The estimated ejection fraction is 45-50%. Abnormal left ventricular diastolic filling is observed, consistent with impaired relaxation. Left Atrium: The left atrium is mildly dilated. Right Ventricle: The right ventricular chamber size and systolic function are within normal limits. Right Atrium: The right atrium is slightly dilated. Aortic Valve: The aortic valve is trileaflet. Systolic excursion of the aortic valve is normal. There is aortic annular calcification. There is a trace of aortic regurgitation. There is no evidence of aortic stenosis. Mitral Valve: The mitral valve leaflets are mildly thickened. There is trace to mild mitral regurgitation. There is no evidence of mitral stenosis. Tricuspid Valve: The tricuspid valve leaflets are normal. There is trace tricuspid regurgitation. Unable to estimate the right ventricular systolic pressure. Pulmonic Valve: There is no evidence of pulmonic valve thickening. There is a trace pulmonic regurgitation. Pericardium: There is no significant pericardial effusion. Aorta: The aortic root appears normal. There is no dilatation of the aortic arch. Pulmonary Artery: The main pulmonary artery is not well visualized. Venous: The inferior vena cava appears normal. There is a greater than 50% respiratory change in the inferior vena cava dimension. Conclusions Abnormal left ventricular diastolic filling is observed, consistent with impaired relaxation. Mild concentric left ventricular hypertrophy is observed. There is a focal wall motion abnormality present.Global mild hypokinesis is noted with moderate to severe focal apical hypokinesis. There is mildly decreased left ventricular systolic function. The estimated ejection fraction is 45-50%. Abnormal left ventricular diastolic filling is observed, consistent with impaired relaxation. The left atrium is mildly dilated. There is a trace of aortic regurgitation. There is trace to mild mitral regurgitation. There is trace tricuspid regurgitation. No reports of prior studies offered for comparison. Measurements Name Value Normal Range RVIDd (AP) 2D 3.3 cm (0.9 - 2.6) RVDdMajor (2D) 2.2 cm (2.2 - 4.4) RAd ISD 4CH 5.1 cm (3.4 - 4.9) RA (A4C)W 3.5 cm (2.9 - 4.6) IVSd (2D) 1.1 cm (0.6 - 1) LVPWd (2D) 1.1 cm (0.6 - 1) LVIDd (2D) 5.1 cm (3.6 - 5.4) LVIDs (2D) 3.8 cm - LV FS (2D) 25 % (25 - 45) Aortic Annulus 2 cm (1.4 - 2.6) Ao root diameter (2D) 3.2 cm (2.1 - 3.5) Ascending Ao 2.9 cm (2.1 - 3.4) Aortic arch 3 cm (1.8 - 3.4) LA dimension (AP) 2D 3.9 cm (2.3 - 3.8) LAd ISD 4CH 5.4 cm (2.9 - 5.3) LA ISD 4CH W 4.4 cm (2.5 - 4.5) Name Value Normal Range LA ESV SP 4CH (A/L) 58.13 ml - LA ESV SP 2CH (A/L) 73.95 ml - LA ESV BP (A/L) 68.85 ml - LA ESV BP (A/L) index 37 ml/m2 - LA ESV SP 4CH (MOD) 51.62 ml - LA ESV SP 2CH (MOD) 70.89 ml - Name Value Normal Range MV E-wave Vmax 0.6 m/sec - MV deceleration time 301 msec - MV A-wave Vmax 0.7 m/sec - MV E:A ratio 0.9 ratio - P. vein S-wave Vmax 0.6 m/sec - P. vein D-wave Vmax 0.3 m/sec - P. vein S:D Vmax ratio 1.9 ratio - P. vein A-wave duration 133 msec - LV lateral e' Vmax 0.1 m/sec - LV E:e' lateral ratio 6 ratio - Name Value Normal Range AV Vmax 1 m/sec - AV VTI 23 cm - AV peak gradient 4 mmHg - AV mean gradient 2.1 mmHg - LVOT Vmax 1 m/sec - LVOT VTI 22.6 cm - LVOT peak gradient 4 mmHg - LVOT mean gradient 2.4 mmHg - PINA Vmax 0.8 m/sec - Name Value Normal Range RAP 8 mmHg - IVC diameter 1.7 cm - Name Value Normal Range PV Vmax 0.5 m/sec - PV peak gradient 1 mmHg -
--- NOTE | 2017-03-02 12:45 | PN ---
Subjective Date of Service: 03/02/17 Interval History: Patient seen and examined at bedside. Patient denies chest pain at this time. Denies any SOB now or with other episodes. Plan for cath this afternoon. Family History: Unchanged from Admission Social History: Unchanged from Admission Past Medical History: Unchanged from Admission Objective Active Medications: Acetaminophen (Tylenol Tab*) 650 mg PO Q4H PRN Aspirin (Ecotrin Ec Tab*) 325 mg PO DAILY NATALIA Atorvastatin Calcium (Lipitor*) 40 mg PO QPM NATALIA Heparin Sodium (Porcine) (Heparin Vial(*)) 0 units IV .PER PROTOCOL NATALIA Heparin Sodium/Dextrose (Heparin Drip 25,000 Units(*)) 25,000 units in 500 mls @ 0 mls/hr IVPB .PER RATE NATALIA; Per Protocol Metoprolol Tartrate (Lopressor Tab*) 12.5 mg PO Q12HR NATALIA Morphine Sulfate (Morphine Inj (Syringe)*) 2 mg IV Q4H PRN Oxycodone/Acetaminophen (Percocet 5/325 Tab*) 1 tab PO Q4H PRN Temazepam (Restoril Cap*) 15 mg PO BEDTIME PRN Vital Signs 03/02/17 03/02/17 03:54 07:41 Temperature 98.0 F 98.0 F Pulse Rate 59 59 Respiratory 20 16 Rate Blood Pressure 106/57 102/57 (mmHg) O2 Sat by Pulse 97 99 Oximetry Oxygen Devices in Use Now: None Appearance: laying in bed, NAD Eyes: No Scleral Icterus Ears/Nose/Mouth/Throat: NL Teeth, Lips, Gums, Mucous Membranes Moist Neck: NL Appearance and Movements; NL JVP, Trachea Midline Respiratory: Symmetrical Chest Expansion and Respiratory Effort, Clear to Auscultation Cardiovascular: NL Sounds; No Murmurs; No JVD, RRR Extremities: No Edema Skin: No Rash or Ulcers Neurological: Alert and Oriented x 3, NL Muscle Strength and Tone Lines/Tubes/Other Access: Clean, Dry and Intact Peripheral IV Nutrition: Taking PO's Result Diagrams: 03/02/17 05:26 03/02/17 05:26 Assess/Plan/Problems-Billing Pt is a 61 y/o M w/ PMH significant for HLD and s/p L hip arthroplasty on 2016 who presented to the ER w/ the c/o of chest pain found to have a positive troponin with new wall motion abnormalities. - Patient Problems (1) NSTEMI (non-ST elevated myocardial infarction) Comment: Appreciate cardiology input. Echo shows new wall motion abnormality. Plan for cardiac cath this afternoon. Continue Heparin drip. Continue ASA, statin, and beta maranda. (2) HLD (hyperlipidemia) Comment: LDL less than 80. Continue Lipitor 40mg. (3) S/P hip replacement Comment: Stable; Had just completed warfarin. (4) DVT prophylaxis Comment: Heparin drip (5) Full code status Status and Disposition: Inpatient for NSTEMI. Plan to discharge home when stable.
[2017-03-02] MEDS ORDERED: Midazolam* 1 MG/ML 5 ML VIAL (5 MG) ONE (14:35)
[2017-03-02] MEDS ORDERED: fentaNYL* 50 MCG/ML 2 ML VIAL (100 MCG VIAL) ONE (14:35)
[2017-03-02] MEDS ORDERED: Iohexol 350 (CONTRAST) 200 ML MDV IV ONE ×2 (14:36→15:55)
[2017-03-02] MEDS ORDERED: Heparin 2 UNITS/ML IVPREMIX* 3,000 ML IV ONE (14:36)
[2017-03-02] MEDS ORDERED: Lidocaine 1% INJ* 10 MG/ML 30 ML SDV ONE (14:36)
[2017-03-02] MEDS ORDERED: Ticagrelor* 90 MG TAB PO ONE (15:26)
[2017-03-02] MEDS ORDERED: nitroGLYCERIN DRIP* 250 ML ONE (15:40)
[2017-03-02] MEDS ORDERED: Bivalirudin(*) 250 MG VIAL ONE (15:40)
[2017-03-02] MEDS ORDERED: Nitroglycerin TAB 0.4 MG* 0.4 MG TAB SL PRN (16:25)
[2017-03-02] MEDS: NS 0.9% 1000 ML* 1,000 ML IV SCH (17:34)
[2017-03-02] MEDS: Atorvastatin* 40 MG TAB PO SCH (18:23)
--- NOTE | 2017-03-02 20:01 | CONS ---
CC: Dr. Arana; Dr. Romie Deluca* CARDIOLOGY CONSULTATION: DATE OF CONSULT: 03/02/17 INDICATION FOR CONSULT: Acute coronary syndrome. HISTORY OF PRESENT ILLNESS: The patient is a 61-year-old gentleman with little past medical history, who came to the hospital after being seen by his primary care physician for chest pain. The patient did have a left total hip replacement 12 days ago, was seen by Dr. Huang yesterday and noted that his hip was healing well and stopped his Coumadin. The patient states that on Wednesday, he had an episode of chest pain as though somebody sat on his chest; it lasted for about 10 minutes. He did get some diaphoresis associated with it. He was just about to come to the emergency room and his symptoms resolved. They did not come back again until just as he was leaving Dr. Huang's office and started having chest pain. He called his primary care physician office and was asked to come over to see Dr. Deluca. In the waiting room, the patient started having chest pain running down to his right arm. He looked kind of diaphoretic and the ambulance was called. On arrival of the ambulance, his symptoms resolved and has not had any further symptoms. The patient has no history of chest pain, no coronary artery disease. The patient did have an episode of atrial fibrillation 10 years ago; it was single self-limited episode. PAST MEDICAL HISTORY: Consistent with hyperlipidemia, one episode of paroxysmal atrial fibrillation, carpal tunnel, recent hip arthroscopy on . OUTPATIENT MEDICATIONS: 1. Aspirin. 2. Lipitor. He was on Coumadin until yesterday. ALLERGIES: To HYDROCODONE. FAMILY HISTORY: Father had a history of coronary artery disease. He had a sudden cardiac at the age of 62. Mother had a history of CVA, at 85. SOCIAL HISTORY: The patient does have a history of wine, but no illicit drug use. Denies tobacco use. Does not get any regular exercise. PHYSICAL EXAM: Height is 5 feet 8 inches, weight 153 pounds. Temperature 98, heart rate is 60, blood pressure 102/57, respiratory rate is 16, oxygen saturation 99%. Sclerae anicteric. Oropharynx is pink without erythema. Carotids are 2+ without bruits. JVD is normal. Thyroid is normal. Cardiac Exam: S1, S2 without any murmurs, rubs, or gallops. Lungs are clear to auscultation bilaterally. No dullness to percussion. Abdomen is soft, nontender, nondistended with normoactive bowel sounds. Extremities show no edema. He has 2+ pulses throughout. The patient is awake, alert, and oriented. He moves all 4 extremities equally. His hip arthroscopy site is healing well. DIAGNOSTIC STUDIES/LAB DATA: INR today is 1.55. White count 11.4; hemoglobin 10; hematocrit 31, his baseline hematocrit is 47; however, he had a significant drop after his surgery and has been slowly increasing. Chemistries within normal limits. Initial troponin 0.09, second troponin 0.81, third troponin 1.05. EKG: EKG yesterday demonstrated normal sinus rhythm. EKG today demonstrates T - wave inversions in the lateral leads. IMPRESSION AND PLAN: This is a 61-year-old gentleman with a history of hyperlipidemia. He was admitted to the hospital with chest pain. He is likely having an acute coronary syndrome. The patient is on heparin. At this point, my recommendation is the patient undergo cardiac catheterization. The risks and benefits of this were described in great detail. The patient is willing to proceed. Further recommendations pending results of his cardiac catheterization. [id number]/[facility] #: [id number] [facility]
[2017-03-02] MEDS: Ticagrelor* 90 MG TAB PO SCH (21:06)
[2017-03-03] MEDS: NS 0.9% 1000 ML* 1,000 ML IV SCH (03:11)
--- NOTE | 2017-03-03 03:44 | CATH ---
CC: Dr. Romie Deluca; Dr. Donnie Meadows* CARDIAC CATHETERIZATION: DATE OF PROCEDURE: 03/02/2017. PROCEDURE: Cardiac catheterization including coronary angiography. INDICATION: Acute coronary syndrome, chest pain. The patient is a 61-year-old gentleman with a history of hyperlipidemia who was admitted to the hospital with crescendo angina. The patient did undergo hip surgery 12 days ago. However, 2 days ago, he started having chest pain. His first episode lasted about 10 minutes. His second episode lasted about 30 minutes. On arrival to the emergency room, the patient was asymptomatic. His EKG showed T-wave inversions into the anterolateral leads. His peak troponin level was 1. Cardiac catheterization was recommended. DESCRIPTION OF PROCEDURE: The patient was brought to the cardiac catheterization lab in a fasting state. Informed consent had been obtained prior to the procedure, all labs were reviewed. The patient was placed supine in the catheterization table. Both femoral areas were cleaned and draped in the usual fashion. 1% lidocaine was used for local anesthesia. The right femoral artery was entered by a modified Seldinger technique and a 6-Greenlandic sheath introducer was placed. The patient underwent coronary angiography using a 6-Greenlandic JL4 catheter and a 6-Greenlandic JR4 catheter. At the end of the procedure, the patient went on to have angioplasty and stenting by Dr. Meadows. Please see his report. The patient tolerated the procedure well with no complications. A total of 1.3 minutes of fluoro time was used. A total of 45 cc of contrast was used. FINDINGS: 1. Left main artery: The left main was normal in size that bifurcated into the LAD and circumflex. There was no evidence of stenosis. 2. Left anterior descending artery: The LAD was normal in size. It gave off 1 large branching diagonal vessel. In the proximal LAD, there was an eccentric 90% stenosis with mild calcification. The LAD itself in the mid and distal portion and the diagonal vessel itself had no disease. 3. Left circumflex artery: The left circumflex artery was normal in size. It gave off 1 large obtuse marginal. The circumflex itself was without disease. The obtuse marginal had a proximal 95% stenosis. The remainder of the obtuse marginal branch was without disease. 4. Right coronary artery: The right coronary artery was a large dominant vessel giving off the PDA. The right coronary artery had an eccentric 40% stenosis to the mid RCA. The distal RCA had a 30% stenosis. The PDA and posterolateral branches were without disease. IMPRESSION: 1. 80% stenosis to the proximal LAD before the bifurcation of the diagonal vessel. 2. 90% stenosis of the proximal obtuse marginal branch of the left circumflex artery. RECOMMENDATION: The patient will undergo angioplasty and stenting of the stenoses by Dr. Meadows. [id number]/[facility] #: [id number] TAL
--- NOTE | 2017-03-03 05:54 | CATH ---
CC: Romie Deluca MD; Bakari Morgan MD* INTERVENTIONAL REPORT: DATE OF PROCEDURE: 03/02/2017. PROCEDURE: Primary stenting of the proximal LAD with a 2.5 x 60 mm long Synergy drug-eluting stent and balloon angioplasty and placement of a 2.5 x 38 mm Synergy drug-eluting stent in the mid to distal circumflex, both stents ultimately dilated to 2.7 and 2.75 mm. I was asked by Dr. Bakari Morgan to perform intervention into both circumflex and the proximal LAD on this patient with a history of acute coronary syndrome with non- ST elevation myocardial infarction. The diagnostic procedure was performed by Dr. Morgan. Please refer to his details for complete analysis. DESCRIPTION OF PROCEDURE: The patient had an 6-Yakut sheath in place already from the diagnostic catheterization. The patient was given 180 mg of Brilinta. Had already received his aspirin and an ACT was drawn as heparin was stopped prior to the cardiac catheterization. ACT was found to be subtherapeutic and as such the patient received an Angiomax bolus and an Angiomax drip was started. Guided views were obtained utilizing a 6-Yakut VL 3.5 curved left coronary catheter. The interventional wire was a BMW 190 cm length for both lesions. Primary stenting of the LAD was performed with a Synergy 2.5 x 16 mm long stent that was post dilated to 2.7 mm with a 2.5 x 8 mm long NC Emerge balloon. Balloon angioplasty was performed to the circumflex utilizing a 2.5 x 15 mm long Emerge balloon with stenting utilizing a 2.5 x 32 mm long Synergy drug- eluting stent dilated to 17 atmospheres to achieve 2.75 mm. RESULTS: Successful reduction of 90% proximal to mid LAD with placement of the 2.5 x 60 mm long Synergy drug-eluting stent post dilated 2.7 mm with SHAQ-3 flow. No dissection seen and 0% residual stenosis. Successful intervention into the circumflex reducing both a mid lesion of 75% to 80% and a 90% distal lesion with balloon angioplasty and placement of the 2.5 x 32 mm long Synergy drug-eluting stent dilated to 2.75 mm. SHAQ-3 flow. No dissection seen. 0% residual stenosis. The patient should be maintained on Brilinta 90 mg b.i.d. for a minimum of a year along with baby aspirin for life. The patient is already on statin therapy and beta-maranda therapy and further risk factor management will be undertaken with Dr. Romie Deluca as well as with Dr. Bakari Morgan, his primary professor of criminal justice. [id number]/[facility] #: [id number] TAL
[2017-03-03 06:28] LABS: Hemoglobin 10.2 g/dl (14.0-18.0); White Blood Count 12.5 10^3/ul (3.5-10.8)
[2017-03-03 06:29] LABS: Hematocrit 30 % (42-52); Mean Corpuscular HGB Conc 34 g/dl (31-36); Mean Corpuscular Hemoglobin 31 pg (27-31); Mean Corpuscular Volume 91 fL (80-94); Mean Platelet Volume 7 um3 (7.4-10.4); Red Blood Count 3.32 10^6/ul (4.0-5.4); Red Cell Distribution Width 13 % (10.5-15)
[2017-03-03 06:38] LABS: Albumin 3.3 g/dL (3.2-5.2); BUN/Creatinine Ratio 13.5 (8-20); Calcium 8.7 mg/dL (8.6-10.3); EGFR African American 137.4 (>60); EGFR Non-African American 106.8 (>60); Globulin 2.6 g/dL (2-4); HDL Cholesterol 28.6 mg/dL; Potassium 3.7 mmol/L (3.5-5.0); Total Bilirubin 0.7 mg/dL (0.2-1.0); Total Protein 5.9 g/dL (6.4-8.9)
[2017-03-03 06:47] LABS: Comments Flag Yes
[2017-03-03] MEDS: Metoprolol Tartrate TAB* 25 MG PO SCH (08:11)
--- NOTE | 2017-03-03 08:22 | PN ---
Subjective Date of Service: 03/03/17 Interval History: Patient seen and examined at bedside. Patient is s/p stent to LAD and CIRC. He denies chest pain and feels well this morning. He has been up out of bed already. Has not yet ambulated. Family History: Unchanged from Admission Social History: Unchanged from Admission Past Medical History: Unchanged from Admission Objective Active Medications: Acetaminophen (Tylenol Tab*) 650 mg PO Q4H PRN Aspirin (Aspirin Low Dose Tab*) 81 mg PO DAILY [facility] Atorvastatin Calcium (Lipitor*) 40 mg PO QPM [facility] Metoprolol Tartrate (Lopressor Tab*) 12.5 mg PO Q12HR [facility] Morphine Sulfate (Morphine Inj (Syringe)*) 2 mg IV Q4H PRN Nitroglycerin (Nitroglycerin Tab 0.4 Mg*) 0.4 mg SL Q5M PRN Oxycodone/Acetaminophen (Percocet 5/325 Tab*) 1 tab PO Q4H PRN Temazepam (Restoril Cap*) 15 mg PO BEDTIME PRN Ticagrelor (Brilinta*) 90 mg PO Q12H [facility] 03/03/17 03/03/17 03/03/17 06:01 07:00 07:23 Temperature Pulse Rate 71 67 Respiratory 10 19 16 Rate Blood Pressure 109/67 113/66 (mmHg) O2 Sat by Pulse 97 96 Oximetry Oxygen Devices in Use Now: None Appearance: sitting up in bed, NAD Eyes: No Scleral Icterus, PERRLA Ears/Nose/Mouth/Throat: NL Teeth, Lips, Gums Neck: NL Appearance and Movements; NL JVP Respiratory: Symmetrical Chest Expansion and Respiratory Effort, Clear to Auscultation Cardiovascular: NL Sounds; No Murmurs; No JVD, RRR Abdominal: NL Sounds; No Tenderness; No Distention Lymphatic: No Cervical Adenopathy Extremities: No Edema Skin: No Rash or Ulcers, - - R groin site soft without ecchymosis. Neurological: Alert and Oriented x 3 Lines/Tubes/Other Access: Clean, Dry and Intact Peripheral IV Nutrition: Taking PO's Result Diagrams: 03/03/17 05:50 03/03/17 05:50 Assess/Plan/Problems-Billing Pt is a 61 y/o M w/ PMH significant for HLD and s/p L hip arthroplasty on 2016 who presented to the ER w/ the c/o of chest pain found to have a positive troponin with new wall motion abnormalities. - Patient Problems (1) NSTEMI (non-ST elevated myocardial infarction) (2) HLD (hyperlipidemia) (3) S/P hip replacement (4) DVT prophylaxis (5) Full code status Status and Disposition: Inpatient for NSTEMI. Please see dictated discharge summary for detail.
[2017-03-03] MEDS ORDERED: Aspirin Low Dose CHEW TAB* 81 MG PO SCH (09:00)
[2017-03-03] MEDS: Ticagrelor* 90 MG TAB PO SCH (09:28)
--- NOTE | 2017-03-03 10:55 | PN ---
Subjective Date of Service: 03/03/17 - CC: arm and chest pain Interval History: No recurrence of right shoulder and chest pain post stents. No leg pain. No dyspnea, orthopnea, PND. Medications Active Medications: Acetaminophen (Tylenol Tab*) 650 mg PO Q4H PRN PRN Reason: FEVER/PAIN Last Admin: 03/02/17 19:47 Dose: 650 mg Aspirin (Aspirin Low Dose Tab*) 81 mg PO DAILY [facility] Last Admin: 03/03/17 08:12 Dose: 81 mg Atorvastatin Calcium (Lipitor*) 40 mg PO QPM [facility] Last Admin: 03/02/17 18:23 Dose: 40 mg Metoprolol Tartrate (Lopressor Tab*) 12.5 mg PO Q12HR [facility] Last Admin: 03/03/17 08:11 Dose: 12.5 mg Morphine Sulfate (Morphine Inj (Syringe)*) 2 mg IV Q4H PRN PRN Reason: PAIN Nitroglycerin (Nitroglycerin Tab 0.4 Mg*) 0.4 mg SL Q5M PRN PRN Reason: ANGINA Oxycodone/Acetaminophen (Percocet 5/325 Tab*) 1 tab PO Q4H PRN PRN Reason: Pain Temazepam (Restoril Cap*) 15 mg PO BEDTIME PRN PRN Reason: INSOMNIA Last Admin: 03/02/17 22:21 Dose: 15 mg Ticagrelor (Brilinta*) 90 mg PO Q12H [facility] Last Admin: 03/03/17 09:28 Dose: 90 mg Objective Vital Signs: Temp Pulse Resp BP Pulse Ox 98.2 F 65 22 109/67 99 03/03/17 08:00 03/03/17 10:01 03/03/17 10:25 03/03/17 10:01 03/03/17 10:01 Oxygen Devices in Use Now: None Appearance: lean spry somewhat older gentleman seated in recliner with family, appears well and energetic. Eyes: No Scleral Icterus, PERRLA Ears/Nose/Mouth/Throat: Clear Oropharnyx, Mucous Membranes Moist Neck: Trachea Midline, No Thyroid Enlargement, Masses Respiratory: Symmetrical Chest Expansion and Respiratory Effort, Clear to Auscultation Cardiovascular: RRR - 2/6 systolic murmur apex. Abdominal: NL Sounds; No Tenderness; No Distention, No Hepatosplenomegaly Lymphatic: No Inguinal Adenopathy Extremities: No Edema, No Clubbing, Cyanosis Skin: No Rash or Ulcers - R groin stick intact, nominal swelling, non tender, good pulses proximal and distal Neurological: Alert and Oriented x 3, NL Sensation, NL Gait, NL Muscle Strength and Tone Lines/Tubes/Other Access: Clean, Dry and Intact Peripheral IV Laboratory Results: 03/03/17 05:50 03/03/17 05:50 INR (Anticoag Therapy) 1.55 (0.89-1.11) H 03/02/17 08:39 APTT 54.4 seconds (26.0-36.3) H 03/02/17 08:39 Total Bilirubin 0.70 mg/dL (0.2-1.0) 03/03/17 05:50 AST 21 U/L (13-39) 03/03/17 05:50 ALT 33 U/L (7-52) 03/03/17 05:50 Alkaline Phosphatase 55 U/L (34-104) 03/03/17 05:50 CK-MB (CK-2) 3.7 ng/mL (0.6-6.3) 03/02/17 22:40 B-Natriuretic Peptide 43 pg/mL (-100) 03/01/17 14:35 Total Protein 5.9 g/dL (6.4-8.9) L 03/03/17 05:50 Albumin 3.3 g/dL (3.2-5.2) 03/03/17 05:50 Globulin 2.6 g/dL (2-4) 03/03/17 05:50 Albumin/Globulin Ratio 1.3 (1-3) 03/03/17 05:50 Triglycerides 68 mg/dL 03/03/17 05:50 Cholesterol 99 mg/dL 03/03/17 05:50 LDL Cholesterol 57 mg/dL 03/03/17 05:50 HDL Cholesterol 28.6 mg/dL 03/03/17 05:50 TSH 0.49 mcIU/mL (0.34-5.60) 03/01/17 14:35 03/01/17 03/01/17 18:40 23:22 Troponin I 0.81 H* 1.05 H* Diagnostic Imaging: ECHO 03/01/17: apical wall motion abnormality, EF 45-50%, trace to mild MR. Cath 03/02/17: tight lesions LAD and Cx to LALITHA. EKG Data: Monitor: NSR. ECG: NSR, inverted T's precordial leads (present since 03/02/17) Assessment/Plan 61 yo who had hip surgery 11 days ago, initially did well, now s/p NQMI with 2V CAD, LALITHA to LAD and Cx yesterday with resolution of anginal symptoms. The patient feels well. Murmer of MR noted, may have increased since echo 03/01/17. CAD: Continue ASA/Brilinta/metoprolol/Statin at current doses. Arrange for cardiac rehab. Follow up with Dr. Morgan next week. BP and cholesterol well controlled. CM: ideally would add ACEI, consider Ramapril 2.5 mg HS or could start as outpatient. Murmur of MR: Follow up echo as out patient, may improve as wall motion normalizes post stents. If ambulates well possible discharge today.
[2017-03-03 13:38] VITALS: BP 121/65
--- NOTE | 2017-03-04 04:14 | DS ---
CC: Romie Deluca MD; Bakari Morgan MD* DISCHARGE SUMMARY: DATE OF ADMISSION: 03/01/17 DATE OF DISCHARGE: 03/03/17 PRIMARY CARE PROVIDER: Romie Deluca MD CONSULTATION FROM THE HOSPITAL: Bakari Morgan MD ATTENDING PHYSICIAN: Suleiman Lugo MD* (report dictated by Yoko Wilkinson NP). PRIMARY DIAGNOSIS: Non-ST elevation myocardial infarction. SECONDARY DIAGNOSES: 1. Status post left total hip arthroplasty, 02/18/17. 2. Dyslipidemia. STUDIES WHILE IN THE HOSPITAL: 1. 03/02/17, transthoracic echocardiogram: Abnormal left ventricular diastolic function observed, consistent with impaired relaxation. Mild concentric left ventricular hypertrophy was observed. There was focal wall motion abnormality present. Global mild hypokinesis noted with moderate-to- severe focal apical hypokinesis. There is mildly decreased left ventricular systolic function. The estimated ejection fraction is 45% to 50%. Abnormal left ventricular diastolic filling is observed consistent with impaired relaxation. The left atrium is mildly dilated. There is trace aortic regurgitation. There is trace mild mitral regurgitation. There is trace tricuspid regurgitation. No reports or prior studies offered for comparison. 2. Venous Doppler study, 03/01/17: Normal exam. No evidence of deep vein thrombosis. 3. CT of the chest, 03/01/17: No CT evidence of acute pulmonary embolic disease. PROCEDURES WHILE IN THE HOSPITAL: Cardiac catheterization. Please refer to Dr. Bakari Morgan as well as Dr. Donnie Meadows's dictation. In summary, left anterior descending artery, there was 90% stenosis with mild calcification and left circumflex artery, the obtuse marginal had a proximal 95% stenosis. Successful reduction of 90% proximal to mid LAD with placement of the 2.5 x 16 mm long Synergy drug-eluting stent. Successful intervention to the circumflex _ 75% to 80% and 90% distillation with balloon angioplasty and placement of 2.5 x 32 mm long Synergy drug-eluting stent dilated to 2.75 mm SHAQ-3 flow. MEDICATIONS AT THE TIME OF DISCHARGE: New medications: 1. Baby aspirin 81 mg oral daily. 2. Lopressor 12.5 mg oral every 12 hours. 3. Brilinta 90 mg oral every 12 hours. 4. The patient should continue Lipitor 40 mg oral daily. HISTORY OF PRESENT ILLNESS AND HOSPITAL COURSE: Mr. Perry is a 61-year-old male with a recent left total hip arthroplasty on 02/18/[address] Michelle Huang as well as a history of dyslipidemia, who presented to the emergency room on 03/01/17 with a complaint of chest pain. He had one episode the day prior as well as episode that day at Dr. Deluca's office. In the emergency room, the patient had an unremarkable EKG, but a troponin of 0.09. The patient was admitted to the telemetry floor and started on a heparin drip. He was continued on aspirin and Lipitor. The patient's troponin peaked at 1. Twice a day beta-maranda was added to the patient's regimen. The patient had a transthoracic echocardiogram the next morning that showed a focal wall motion abnormality. He was taken and after some deliberation by the patient, he was agreeable to cardiac catheterization. He was taken to the cardiac woods laborer under the direction of Dr. Morgan as well as Dr. Meadows. Please refer to their report for detail. He had a stent to the LAD as well as the obtuse marginal to the circumflex. He was given Brilinta in the woods laborer that evening and started on twice a day Brilinta. The next morning after his cath, his blood pressure was low, but stable with systolic ranging from 100 to 120. Recommendation from Cardiology was to possibly start the patient on low-dose ramipril, yet given the patient's low blood pressure and addition to beta-maranda, a decision was made to postpone this until followup visit at the cardiology office. The patient did have an increased mitral regurgitation, murmur and recommendations are for the patient to have a followup echocardiogram to assess the degree of mitral regurgitation, status post intervention. On 03/03/17, vitals were as follows; temperature 99.3, heart rate 70, respiratory rate 17, blood pressure 120/65, oxygen saturation 99% on room air. The patient was ambulating without any shortness of breath or chest pain. At this point, the patient was stable for discharge. DISCHARGE PLAN: The patient to start a heart healthy diet. The patient has been given the cardiac catheterization discharge instructions that include no heavy lifting for 3 days. The patient has a followup appointment with Dr. Deluca' s nurse practitioner this week at 03/04/17 at 3:20 and has an appointment with Dr. Bakari Morgan on 11/01/17 at 12:45 p.m. The patient has been instructed to return to the hospital if he experienced any worsening pain or if he has any repeat chest pain, shortness of breath or any visible bleeding from his catheterization site. I have reviewed all of the instructions with the patient and his and they are agreeable with the discharge today. This is a summarized report of a complex medical history and hospital stay. For more details, please see the entire medical record. TIME SPENT: Time for this discharge was 60 minutes and 30 minutes were spent with the patient discussing the discharge and followup instructions. CONDITION ON DISCHARGE: Stable. YOKO WILKINSON NP [id number]/[facility] #: [id number] TAL
== END 2017-03-03 13:30 | disposition home or self-care (01) ==
LOC: ED 13:39 → MEDTELE 17:38 → ICU 03-02 16:49
PROVIDERS: ADMIT Internal Medicine; ATTEND Internal Medicine
DX: I21.4 Non-ST elevation (NSTEMI) myocardial infarction (principal); E78.5 Hyperlipidemia, unspecified; I51.7 Cardiomegaly; M79.605 Pain in left leg; Z88.5 Allergy status to narcotic agent; Z96.642 Presence of left artificial hip joint; Z79.899 Other long term (current) drug therapy; I24.9 Acute ischemic heart disease, unspecified
CPT/HCPCS: 36415; 71275; 80048; 80053; 80061; 82550; 82553; 83605; 83690; 83735; 83880; 84443; 84484; 85025; 85027; 85610; 85730; 86140; 93005; 93306; 96366; 99156; 99157; 99285; A9270-GY; C1725; C1769; C1876; C1887; C9600-LD; C9601-LC; G0378; J0583; J1644; J2001; J2250; J3010; Q9967

== ENCOUNTER 2017-08-20 10:12 | Emergency (ER) | payer OTHER ==
[2017-08-20 10:38] VITALS: BP 141/73
--- NOTE | 2017-08-20 11:28 | UC ---
Eye Complaint HPI - HPI Summary HPI Summary: Patient is on anticoagulant. He had a coughing fit this morning when in the shower. He has ecchymosis in the inner corner of his upper left eye lid. Area is less than the size of a dime does not inhibit vision - History of Current Complaint Chief Complaint: UCSkin Stated Complaint: BRUISING ON EYE Time Seen by Provider: 08/20/17 11:27 Hx Obtained From: Patient Onset/Duration: Sudden Onset Timing: Constant Severity Currently: None Pain Intensity: 0 Aggravating Factor(s): Nothing Alleviating Factor(s): Nothing Associated Signs And Symptoms: Positive: Negative - Allergies/Home Medications Allergies/Adverse Reactions: Allergies Allergy/AdvReac Type Severity Reaction Status Date / Time hydrocodone Allergy Vomiting Verified 08/20/17 10:39 PMH/Surg Hx/FS Hx/Imm Hx Previously Healthy: No Endocrine History: Dyslipidemia Cardiovascular History: Cardiac Disease, Hypertension - Surgical History Surgical History: Yes Surgery Procedure, Year, and Place: carpel tunnel left wrist, 2x right knee arthroscopic, 1 left arthroscopic. left total hip- february 2017. - Family History Known Family History: Positive: Hypertension, Other - HLD - Social History Occupation: Retired Lives: With Family Alcohol Use: Daily Alcohol Amount: 3-4 day Substance Use Type: Marijuana Substance Use Comment - Amount & Last Used: last jan 2017 Smoking Status (MU): Never Smoked Tobacco - Immunization History Most Recent Influenza Vaccination: 2017 Most Recent Pneumonia Vaccination: none Review of Systems Constitutional: Negative Skin: Bruising - Inner corner of the upper left lid Eyes: Negative ENT: Negative Respiratory: Negative Cardiovascular: Negative Gastrointestinal: Negative Genitourinary: Negative Motor: Negative Neurovascular: Negative Musculoskeletal: Negative Neurological: Negative Psychological: Negative Is Patient Immunocompromised?: No All Other Systems Reviewed And Are Negative: Yes Physical Exam Triage Information Reviewed: Yes Appearance: Well-Appearing, No Pain Distress, Well-Nourished Vital Signs: Initial Vital Signs Temp 98.1 F 08/20/17 10:32 Pulse 53 08/20/17 10:32 Resp 18 08/20/17 10:32 BP 141/73 08/20/17 10:32 Pulse Ox 100 08/20/17 10:32 Vital Signs Reviewed: Yes Eye Exam: Normal Eyes: Positive: Conjunctiva Clear ENT Exam: Normal ENT: Positive: Normal ENT inspection, Hearing grossly normal, Pharynx normal, Uvula midline. Negative: Nasal congestion, Trismus, Muffled voice, Hoarse voice , Sinus tenderness Dental Exam: Normal Neck exam: Normal Neck: Positive: Supple, Nontender, No Lymphadenopathy Respiratory Exam: Normal Respiratory: Positive: Chest non-tender, Lungs clear, Normal breath sounds, No respiratory distress, No accessory muscle use Cardiovascular Exam: Normal Cardiovascular: Positive: RRR, No Murmur, Pulses Normal, Brisk Capillary Refill Musculoskeletal Exam: Normal Musculoskeletal: Positive: Strength Intact, ROM Intact, No Edema Neurological Exam: Normal Neurological: Positive: Alert, Muscle Tone Normal Psychological Exam: Normal Psychological: Positive: Normal Response To Family Skin Exam: Normal Eye Complaint Course/Dx - Course Course Of Treatment: Ice to eye lid. follow with pcp - Differential Dx/Diagnosis Provider Diagnoses: Ecchymosis left upper eyelid Discharge - Sign-Out/Discharge Documenting (check all that apply): Discharge - Discharge Plan Condition: Stable Disposition: HOME Patient Education Materials: Hypertension (ED), Ice Pack Application (ED), Ecchymosis (ED) Referrals: Romie Deluca MD [Primary Care Provider] - 1 Week - Billing Disposition and Condition Condition: STABLE Disposition: HOME
== END 2017-08-20 11:40 | disposition home or self-care (01) ==
LOC: UCEAST 10:12
DX: R23.3 Spontaneous ecchymoses (principal); E78.5 Hyperlipidemia, unspecified; I10 Essential (primary) hypertension; Z96.642 Presence of left artificial hip joint; Z88.5 Allergy status to narcotic agent
CPT/HCPCS: 99211; G0463

== ENCOUNTER 2018-09-07 11:22 | Emergency (ER) | payer MEDICARE, OTHER ==
--- NOTE | 2018-09-07 11:53 | ED ---
Complex/Multi-Sys Presentation - HPI Summary HPI Summary: Pt is a 63 y/o M presenting to the ED brought in by EMS for multiple present sx. He reports fatigue, hot flashes, diaphoretic at night, pain in his R chest close to his shoulder, some SOB, frequent urination at night, nasal congestion in the morning, and some rash on his R-sided abd. The pain in his R shoulder radiates to his neck/jaw, is not worsened by anything, including movement, and it feels like a pinpoint sharp pain. He denies sore throat, cough, nausea, abd pain, diarrhea, and constipation. He notes he was bit by a tick about 10 days ago, got the tick removed in less than 24 hours, and was on doxycycline to treat potential infection. - History Of Current Complaint Chief Complaint: EDChestPainROMI Time Seen by Provider: 09/07/18 11:31 Hx Obtained From: Patient Onset/Duration: Lasting Days, Still Present Timing: Constant, Days Severity Currently: Moderate Severity Initially: Moderate Location: Pain At: - R shoulder Aggravating Factor(s): none Alleviating Factor(s): none Associated Signs And Symptoms: Positive: SOB, Chest Pain, Diaphoresis - mostly at night, brief hot flashes, Other - frequent urination at night. Negative: Cough, Nausea, Diarrhea, Abdominal Pain, Fever - Allergies/Home Medications Allergies/Adverse Reactions: Allergies Allergy/AdvReac Type Severity Reaction Status Date / Time hydrocodone Allergy Vomiting Verified 09/07/18 11:28 Home Medications: Home Medications Ticagrelor* [Brilinta 90 MG*] 60 mg PO Q12H 09/07/18 [History Confirmed 09/07/18 ] PMH/Surg Hx/FS Hx/Imm Hx Previously Healthy: Yes Endocrine/Hematology History: Denies: Hx Diabetes, Hx Thyroid Disease Cardiovascular History: Reports: Hx Hypercholesterolemia Denies: Hx Hypertension, Hx Myocardial Infarction, Other Cardiovascular Problems/Disorders Respiratory History: Denies: Hx Asthma, Hx Chronic Obstructive Pulmonary Disease (COPD) GI History: Reports: Hx Irritable Bowel Denies: Hx Ulcer Musculoskeletal History: Reports: Hx Arthritis - OA Sensory History: Reports: Hx Contacts or Glasses Denies: Hx Hearing Aid Opthamlomology History: Reports: Hx Contacts or Glasses Psychiatric History: Reports: Hx Depression - transient depression - Cancer History Hx Chemotherapy: No - Surgical History Surgery Procedure, Year, and Place: carpel tunnel left wrist, 2x right knee arthroscopic, 1 left arthroscopic. left total hip- february 2017. Hx Anesthesia Reactions: No Infectious Disease History: No Infectious Disease History: Denies: Hx Hepatitis, Hx Human Immunodeficiency Virus (HIV), Traveled Outside the [place] in Last 30 Days - Family History Known Family History: Positive: Hypertension, Other - HLD - Social History Alcohol Use: Daily Alcohol Amount: 3-4 day Hx Substance Use: Yes Substance Use Type: Reports: Marijuana Substance Use Comment - Amount & Last Used: last jan 2017 Hx Tobacco Use: Yes Smoking Status (MU): Never Smoked Tobacco Review of Systems Positive: Fatigue, Skin Diaphoresis Positive: Nasal Discharge - in morning. Negative: Sore Throat Positive: Chest Pain - R-sided, closer to shoulder Positive: Shortness Of Breath. Negative: Cough Negative: Abdominal Pain, Diarrhea, Nausea, Other - constipation Positive: frequency Positive: Arthralgia Positive: Rash All Other Systems Reviewed And Are Negative: Yes Physical Exam - Summary Physical Exam Summary: Constitutional: Well-developed, Well-nourished, Alert. (-) Distressed Skin: Warm, Dry, erythematous papular rash on abd. HENT: Normocephalic; Atraumatic Eyes: Conjunctiva normal Neck: Musculoskeletal ROM normal neck. (-) JVD, (-) Stridor, (-) Tracheal deviation Cardio: Rhythm regular, rate normal, Heart sounds normal; Intact distal pulses; The pedal pulses are 2+ and symmetric. Radial pulses are 2+ and symmetric. (-) Murmur Pulmonary/Chest wall: Effort normal. (-) Respiratory distress, (-) Wheezes, (-) Rales Abd: Soft, (-) tenderness, (-) Distension, (-) Guarding, (-) Rebound. Erythematous papular rash on R abd. Musculoskeletal: (-) Edema, Discomfort with ROM of R shoulder Lymph: (-) Cervical adenopathy Neuro: Alert, Oriented x3 Psych: Mood and affect Normal Triage Information Reviewed: Yes Vital Signs On Initial Exam: Initial Vitals Temp Pulse Resp BP Pulse Ox 98 F 54 15 134/84 97 09/07/18 11:23 09/07/18 11:23 09/07/18 11:23 09/07/18 11:23 09/07/18 11:23 Vital Signs Reviewed: Yes Diagnostics - Vital Signs Vital Signs Temp Pulse Resp BP Pulse Ox 09/07/18 11:31 52 14 97 09/07/18 11:26 52 18 134/84 98 09/07/18 11:23 98 F 54 15 134/84 97 - Laboratory Result Diagrams: 09/07/18 12:07 09/07/18 12:07 Lab Statement: Any lab studies that have been ordered have been reviewed, and results considered in the medical decision making process. - Radiology CXR Radiology Interpretation Completed By: Radiologist Summary of Radiographic Findings: No active cardiopulmonary disease. ED physician has reviewed this report. - EKG 1137 Cardiac Rate: Bradycardia - 51bpm EKG Rhythm: Sinus Bradycardia ST Segment: Normal Ectopy: None Summary of EKG Findings: EKG at 1137 shows sinus bradycardia at 51bpm with nml PA interval, nml QRS, nml QTc, nml ST segment, nml T-waves. This is an overall nonspecific EKG. Complex Multi-Symp Course/Dx Course Of Treatment: Pt is a 63 y/o M presenting to the ED brought in by EMS for chest pain, with multiple sx present. He reports fatigue, hot flashes, diaphoretic at night, pain in his R shoulder, some SOB, frequent urination at night, nasal congestion in the morning, and some rash on his R-sided abd. He denies sore throat, rhinorrhea, cough, nausea, abd pain, diarrhea, and constipation. He notes he was bit by a tick about 10 days ago, got the tick removed in less than 24 hours, and was on doxycycline to treat potential infection. CXR shows no active cardiopulmonary disease. D-dimer is <200, lactic is 0.8, and initial troponin is 0.01. All other lab work is WNL. EKG at 1137 shows sinus bradycardia at 51bpm with nml PA interval, nml QRS, nml QTc, nml ST segment, nml T-waves. This is an overall nonspecific EKG. He will be sent home with dx including shoulder pain and chest pain. The pt is stable and agreeable with this plan. - Diagnoses Provider Diagnoses: Shoulder pain, Chest pain Discharge - Sign-Out/Discharge Documenting (check all that apply): Patient Departure Patient Received Moderate/Deep Sedation with Procedure: No - Discharge Plan Condition: Stable Disposition: HOME Patient Education Materials: Chest Pain (ED), Shoulder Pain (ED) Print Language: URDU Referrals: Roime Deluca MD [Primary Care Provider] - - Billing Disposition and Condition Condition: STABLE Disposition: Home - Attestation Statements Document Initiated by Radhaibmarie: Yes Documenting Scribe: Laura Landaverde Provider For Whom Rosamaria is Documenting (Include Credential): Tatyana Espinoza MD. Scribe Attestation: ILaura, scribed for Tatyana Will MD. on 09/07/18 at 2237. Scribe Documentation Reviewed: Yes Provider Attestation: The documentation as recorded by the radhaibe, Laura Landaverde accurately reflects the service I personally performed and the decisions made by me, Tatyana Will MD. Status of Scribe Document: Viewed
[2018-09-07 12:15] LABS: ABS Basophils 0 10^3/ul (0-0.2); ABS Eosinophils 0.2 10^3/ul (0-0.6); ABS Lymphocytes 1.4 10^3/ul (1.0-4.8); ABS Monocytes 0.8 10^3/ul (0-0.8); ABS Neutrophils 5.8 10^3/ul (1.5-7.7); ABS Nucleated RBC 0 10^3/ul; Eosinophil % 2.4 %; Hematocrit 45 % (42-52); Hemoglobin 15.1 g/dL (14.0-18.0); Lymphocyte % 16.9 %; Mean Corpuscular HGB Conc 34 g/dL (31-36); Mean Corpuscular Hemoglobin 32 pg (27-31); Mean Corpuscular Volume 94 fL (80-94); Mean Platelet Volume 7.8 fL (7.4-10.4); Nucleated Red Blood Cells % 0; Platelet Count 233 10^3/uL (150-450); Red Blood Count 4.75 10^6 /uL (4.18-5.48); Red Cell Distribution Width 14 % (10.5-15); White Blood Count 8.2 10^3/uL (3.5-10.8)
[2018-09-07 12:35] LABS: Albumin 4.4 g/dL (3.2-5.2); Albumin/Globulin Ratio 1.7 (1-3); BUN/Creatinine Ratio 19.5 (8-20); Calcium 9.3 mg/dL (8.6-10.3); EGFR African American 122.7 (>60); EGFR Non-African American 101.4 (>60); Globulin 2.6 g/dL (2-4); Potassium 4.5 mmol/L (3.5-5.0); Total Bilirubin 0.9 mg/dL (0.2-1.0); Troponin I 0.01 ng/mL (<0.04)
[2018-09-07 12:47] LABS: Influenza A Molecular NEGATIVE (Negative); Influenza B Molecular NEGATIVE (Negative)
[2018-09-07 16:21] VITALS: BP 160/79
== END 2018-09-07 16:21 | disposition home or self-care (01) ==
LOC: ED 11:22
DX: R07.9 Chest pain, unspecified (principal); M25.511 Pain in right shoulder; E78.00 Pure hypercholesterolemia, unspecified; K58.9 Irritable bowel syndrome, unspecified; F32.9 Major depressive disorder, single episode, unspecified; Z88.5 Allergy status to narcotic agent; Z79.01 Long term (current) use of anticoagulants
CPT/HCPCS: 36415; 71045; 80053; 83605; 84484; 85025; 85379; 93005; 99283